=== PATIENT | female | born 1965 ===

== ENCOUNTER 2017-03-13 11:06 | Day surgery (SDC) | payer MEDICAID ==
[2017-03-04 12:46] VITALS: BMI 29.2
[2017-03-13] MEDS ORDERED: Propofol 10 mg/ml Inj (20 ML) ONE (11:56)
[2017-03-13] MEDS ORDERED: Lidocaine 2% Inj (20ml) ONE (11:59)
[2017-03-13 13:01] VITALS: RESP 16
[2017-03-13 13:50] VITALS: BP 125/75; PULSE 72; TEMP 97.7; O2SAT 97
== END 2017-03-13 14:05 | disposition home or self-care (01) ==
LOC: ENDO 11:06
PROVIDERS: ATTEND Internal Medicine
DX: Z12.11 Encounter for screening for malignant neoplasm of colon (principal); D12.3 Benign neoplasm of transverse colon; K57.30 Diverticulosis of large intestine without perforation or abscess without bleeding; K64.8 Other hemorrhoids
CPT/HCPCS: 45380; 88305; J2704; J7040